=== PATIENT | male | born 1960 | race Caucasian/White ===

== ENCOUNTER 2017-10-11 18:54 | Observation (INO) | payer BC, SELFPAY ==
[2017-10-11 18:55] VITALS: BP 154/80; PULSE 97; RESP 18; TEMP 37.3; O2SAT 100; BMI 21.8
--- NOTE | 2017-10-11 19:18 | CT_ITS ---
STUDY: CT ABDOMEN AND PELVIS WITH CONTRAST REASON FOR EXAM: Male, 56 years old. Worsening stomach pain. RADIATION DOSAGE (If Supplied By Facility): CTDIvol = ( 8.88 ) mGy, DLP = ( 368.87 ) mGycm TECHNIQUE: Transaxial images were obtained from the dome of the diaphragm to the symphysis pubis without oral contrast. 100 ml of Isovue 300 contrast was administered. Sagittal and coronal images were reconstructed. Individualized dose optimization techniques were used for this CT. COMPARISON: January 17, 2010. FINDINGS: The visualized lung bases are unremarkable. The visualized portions of the heart are within normal limits. Normal liver. Normal gallbladder and extrahepatic biliary system. Normal spleen. Normal pancreas. Normal bilateral adrenal glands. Normal right kidney. Normal left kidney. Normal visualized stomach. Normal small intestine. Normal colon. The appendix is dilated measuring up to 11 mm in diameter. There is appendiceal wall thickening and free fluid within the pelvis. Normal abdominal aorta. Normal inferior vena cava. Normal retroperitoneum. Normal urinary bladder. Normal abdominal wall. Normal osseous structures. CT/Abdomen/Pelvis WITH Contrast IMPRESSION: Findings consistent with acute appendicitis. Electronically Signed: Leslie Denton MD at 21:41 EDT Tel , Service support ,
[2017-10-11] MEDS: Ondansetron 4 MG/2 ML Vial IV (19:29)
[2017-10-11] MEDS: 0.9% Normal Saline 1,000 ML 150 ML IV (19:29)
[2017-10-11] MEDS: Morphine 4 MG/ML Syringe IV (19:30)
[2017-10-11 19:41] LABS: Absolute Lymphocyte Count 0.93 X10^3/ul (0.83-4.51); Absolute Neutrophil Count 10.2 X10^3/uL (2.0-7.7); Basophil# 0.01 X10^3/uL; Basophil% 0.1 % (0-1); Eosinophil# 0.03 X10^3/uL; Eosinophils% 0.2 % (0-5); Hematocrit 31.5 % (40-54); Hemoglobin 10.9 g/dl (13.0-16.5); Lymphocyte # 0.93 X10^3/ul (4.0); Lymphocyte % 7.6 % (19-41); Mean Corp Hgb Conc 34.6 g/gl (32-36); Mean Corpuscular Hgb 30.8 pg (27.0-32.0); Mean Platelet Vol. 8.5 fl (6.2-12.0); Monocyte# 1.03 X10^3/uL; Monocyte% 8.4 % (0-10); Neutrophil # 10.17 X10^3/uL (2.7-7.7); Neutrophil % 83.5 % (47-70); Platelet Count 243 K/mm3 (150-450); RBC Distribution Width CV 11.3 % (11.6-14.6); RBC Distribution Width SD 35.6 fl (35.1-43.9); Red Blood Count 3.54 M/mm3 (4.6-6.2); White Blood Count 12.2 K/mm3 (4.4-11.0)
[2017-10-11 19:44] LABS: Anion Gap 8 (5-15); BUN 10 mg/dL (7-18); BUN/Creat Ratio 11.2 RATIO (10-20); Calcium,Total 8.7 mg/dL (8.5-10.1); Chloride 94 mmol/L (98-107); Creatinine, Serum 0.89 mg/dL (0.70-1.30); EST Glomerular Filtration Rate 93 mL/min (>60); Est Glom Filt Rate - Afr Amer 113 mL/min (>60); Glucose 164 mg/dL (74-106); Potassium 3.5 mmol/L (3.5-5.1); Sodium Level 129 mmol/L (136-145)
[2017-10-11 19:49] LABS: POSITIVE COUNT NO; POSITIVE DIFFERENTIAL NO; POSITIVE MORPHOLOGY NO
[2017-10-11 20:51] LABS: Bacteria 0 SEEN /hpf (None Seen); Mucous, Urine 0 SEEN /hpf (<or=2+); Red Blood Cells-Urine 0 SEEN /hpf (0-5); White Blood Cells 0 SEEN /hpf (0-5)
[2017-10-11 20:55] LABS: Color, Urine Yellow (Yellow); Glucose, Dipstick Normal (Normal); Ketone-Dipstick 5 mg/dl (Negative); Leukocyte Esterase-Dipstick Negative /ul (Negative); Nitrite-Dipstick Negative (Negative); Occult Blood-Urine Negative /ul (Negative); Protein-Dipstick Negative (Negative); Urine Bilirubin Dipstick Negative (Negative); Urine Clarity Clear (Clear); Urine Urobilinogen Normal (Normal); Urine pH 6.5 (5.0 - 8.0)
[2017-10-11 21:08] LABS: Squamous Epithelial Cells - UA 0-5 SEEN /hpf (0-5)
[2017-10-11 21:09] LABS: Transitional Epithelial - Ur 0-5 SEEN /hpf (0-5)
[2017-10-11 21:26] VITALS: BP 128/83; PULSE 87; RESP 12; O2SAT 98
--- NOTE | 2017-10-11 22:00 | ED.VISSUMM ---
- ER Visit Summary Date of Service: 10/11/17 Chief Complaint: Abdominal pain History of Present Illness: The patient is a 56 M with a history of ulcerative colitis although he has not been on medications for several years. Patient reports lower abdominal pain that started yesterday with sensation of bloating. He has had some mild nausea but no vomiting. He has noticed that he is not passing as much gas as normal. He had some chills but no measured fever. Patient denies any prior abdominal surgeries. Physical Examination: Blood pressure is 154/80, temperature 99.1, heart rate 97, respiratory rate 18, pulse ox 100% on room air. Patient sitting upright in bed no acute distress. He appears nontoxic. Head and neck examination is normal. Heart is regular rate and rhythm. Lung sounds are clear. Abdomen is soft with moderate tenderness in the left lower quadrant. There is no guarding or rebound. Hypoactive bowel sounds are noted. Test Results: CBC was a white count of 12.2 with 83% neutrophils. Hemoglobin 10.9. Chemistry studies reveal a sodium of 129 and a chloride of 94. Last prior available labs are from 2 years ago and his sodium was 135 at that time. His glucose is 164. CT scan abdomen and pelvis with contrast reveals evidence of acute appendicitis. Emergency Department Course and Treatment: Patient is given morphine, Zofran, and IV fluids. Upon return a CT scan Zosyn is ordered. I have spoken with Dr. Fitch who will be in to see the patient. Treatment Plan: [] Disposition: Admit Impression: Acute appendicitis This note was generated with [employer] dictation software. It may contain incorrect words, spelling, and punctuation that were not noted in review of the chart prior to signing ED Disposition - Plan for ED Patient: Chief Complaint: Abd Pain Referrals: Nick Duarte MD [Primary Care Provider] -
--- NOTE | 2017-10-11 22:03 | ED.DCSUM_ITS ---
- ER Visit Summary Date of Service: 10/11/17 Chief Complaint: Abdominal pain History of Present Illness: The patient is a 56 M with a history of ulcerative colitis although he has not been on medications for several years. Patient reports lower abdominal pain that started yesterday with sensation of bloating. He has had some mild nausea but no vomiting. He has noticed that he is not passing as much gas as normal. He had some chills but no measured fever. Patient denies any prior abdominal surgeries. Physical Examination: Blood pressure is 154/80, temperature 99.1, heart rate 97 , respiratory rate 18, pulse ox 100% on room air. Patient sitting upright in bed no acute distress. He appears nontoxic. Head and neck examination is normal. Heart is regular rate and rhythm. Lung sounds are clear. Abdomen is soft with moderate tenderness in the left lower quadrant. There is no guarding or rebound. Hypoactive bowel sounds are noted. Test Results: CBC was a white count of 12.2 with 83% neutrophils. Hemoglobin 10.9. Chemistry studies reveal a sodium of 129 and a chloride of 94. Last prior available labs are from 2 years ago and his sodium was 135 at that time. His glucose is 164. CT scan abdomen and pelvis with contrast reveals evidence of acute appendicitis. Emergency Department Course and Treatment: Patient is given morphine, Zofran, and IV fluids. Upon return a CT scan Zosyn is ordered. I have spoken with Dr. Fitch who will be in to see the patient. Treatment Plan: [] Disposition: Admit Impression: Acute appendicitis This note was generated with [facility] dictation software. It may contain incorrect words, spelling, and punctuation that were not noted in review of the chart prior to signing ED Disposition - Plan for ED Patient: Chief Complaint: Abd Pain Referrals: Nick uDarte MD [Primary Care Provider] -
--- NOTE | 2017-10-11 22:03 | EKG12_ITS ---
Test Reason : PRE-OP Blood Pressure : / mmHG Vent. Rate : 086 BPM Atrial Rate : 086 BPM P-R Int : 164 ms QRS Dur : 090 ms QT Int : 382 ms P-R-T Axes : 077 082 065 degrees QTc Int : 457 ms Normal sinus rhythm Normal ECG No previous ECGs available Confirmed by TG JARRETT ([id number]), art editor JEREMIAH LOPEZ ([id number]) on 10/25/2017 3:00:45 PM Referred By: DR TAVAREZ Confirmed By:TG JARRETT
[2017-10-11 22:17] VITALS: BP 131/84; PULSE 85; RESP 18; TEMP 37.3; O2SAT 97; BMI 21.8
--- NOTE | 2017-10-11 22:24 | ED.RN ---
NO OLD EKG'S IN MUSE
[2017-10-11 22:25] VITALS: BP 131/84; PULSE 84; RESP 18; O2SAT 98
--- NOTE | 2017-10-11 22:36 | HP.PCM_ITS ---
History of Present Illness Date of Admission: 10/11/17 The patient is a 56 year old M with a 24 hour history of abdominal pain now localizing to the right lower quadrant. He noted worsening pain this evening and presented to the ER. He was found to have a WBC count of [address] scan is read as appendicitis. The patient has a history ulcerative colitis. He has not been on medications for at least a few years. last endoscopy was 2014. Past Medical History Allergies No Known Allergies Allergy (Verified 10/11/17 18:56) Home Medications: Ambulatory Orders Medication Instructions Recorded Lisinopril [Lisinopril] 1 tab PO DAILY 10/11/17 Surgical History: no surgical history Smoking Status: Former smoker Alcohol: None Drugs: None Review of Systems Constitutional: Reports: Anorexia. Denies: Chills, Fever, Weight Change HEENT: Denies: Head Aches, Sinus Congestion, Sinus Drainage Cardiovascular: Denies: Chest Pain, Palpitations Respiratory: Denies: Cough, Shortness of breath at rest, Sputum production Gastrointestinal: Reports: Abdominal Pain. Denies: Nausea, Vomiting Genitourinary: Denies: Dysuria Musculoskeletal: Denies: Joint Pain, Joint Tenderness Skin: Denies: Rash, Wounds Neurological: Denies: Numbness, Tingling, Focal weakness Psychiatric: Denies: Anxiety, Depression, Homicidal Ideations, Suicidal Ideations Hematologic/ Lymphatic: Denies: Easy Bruising, Easy Bleeding VTE Information - Inpt Only VTE Present on Admission: No VTE Mechan Device Prophylaxis: SCD's - Physical Exam General: Alert, Oriented x3, Cooperative Lungs: Clear to auscultation, Normal air movement Cardiovascular: Regular rate, No murmurs Abdomen: Bowel Sounds Present, Soft, Tender - RLQ pain Vital Signs Temp Pulse Resp BP Pulse Ox 99.2 F H 85 18 131/84 H 97 10/11/17 22:17 10/11/17 22:17 10/11/17 22:17 10/11/17 22:17 10/11/17 22:17 Oxygen Delivery Method Room Air Weight: 67.1 kg Body Mass Index (BMI) 21.8 Laboratory Tests Past 24 Hrs 10/11/17 10/11/17 10/11/17 19:24 19:24 20:40 WBC 12.2 H RBC 3.54 L Hgb 10.9 L Hct 31.5 L MCV 89.0 MCH 30.8 MCHC 34.6 RDW 11.3 L RDW Differential 35.6 Plt Count 243 MPV 8.5 Immature Gran % (Auto) 0.200 Neut % (Auto) 83.5 H Lymph % (Auto) 7.6 L [place] % (Auto) 8.4 Eos % (Auto) 0.2 Baso % (Auto) 0.1 Absolute Neuts (auto) 10.2 H Absolute Lymphs (auto) 0.93 Total Counted Not Reportable Sodium 129 L Potassium 3.5 Chloride 94 L Carbon Dioxide 27.0 Anion Gap 8 BUN 10 Creatinine 0.89 Est GFR (MDRD) Af Amer 113 Est GFR (MDRD) Non-Af 93 BUN/Creatinine Ratio 11.2 Glucose 164 H Calcium 8.7 Urine Color Yellow Urine Clarity Clear Urine pH 6.5 Ur Specific [place] 1.010 Urine Protein Negative Urine Glucose (UA) Normal Urine Ketones 5 H Urine Occult Blood Negative Urine Nitrite Negative Urine Bilirubin Negative Urine Urobilinogen Normal Ur Leukocyte Esterase Negative Urine RBC 0 SEEN Urine WBC 0 SEEN Ur Squamous Epith Cells 0-5 SEEN Ur Transition Epith Cell 0-5 SEEN Urine Bacteria 0 SEEN Urine Mucus 0 SEEN Assessment/Plan Appendicitis - I plan to perform a laparoscopic appendectomy. The patient understands the risks, benefits and possible complications. He consents to surgery. He will be given ZOsyn and SCDs will be placed for VTE prevention
[2017-10-11] MEDS: Bupivacaine Mpf 0.5% 30 ML VIAL (22:58)
--- NOTE | 2017-10-11 23:30 | APP_PTH ---
PATIENT: DOMINICK DE LA CRUZ LOC: [facility] U#:[id number] AGE/SX: 56/M ROOM: MS315 RE10/11/[address]: Dr. Jez Naqvi MD : 1960 BED: 1 DIS: 10/12/2017 SPEC #: [id number] RECD: 10/12/17 07:40 STATUS: SUSAN REEricka #: [id number] MARLENA: 10/11/17 23:[address]: Jez Naqvi DEPT: SURGICAL PATHOLOGY RECD BY: Jerry Viveros ENTERED: 10/12/17 08:24 SP TYPE: APPENDIX OTHR DR: Dr. Martin Duarte MD Tissues: Appendix, NOS Procedures: Surgery Specimen Level III HEADER OPERATION: Laparoscopic appendectomy PRE-OP DIAGNOSIS: Acute appendicitis TISSUE SUBMITTED: Appendix MICROSCOPIC DIAGNOSIS Appendix: Acute appendicitis and periappendicitis. SJ:alex 10/13/17 MICROSCOPIC DESCRIPTION Slides are reviewed. GROSS DESCRIPTION Received is one container labeled with the patient's name and designated appendix. The specimen consists of an appendix measuring 8 cm in length and up to 1.2 cm in average diameter. The attached periappendiceal adipose tissue measures up to 1.5 cm in width. The serosa is focally covered with carlos, purulent exudate. No obvious perforation is identified. The lumen contains fecal material. No fecalith is identified. [address] sections are submitted in one cassette. / SJ:alex 10/12/17 TC:2 [facility]: [id number]
--- NOTE | 2017-10-11 23:54 | OP.PCM_ITS ---
Report of Operation Date of Procedure: 10/11/17 Pre-Operative Diagnosis: appendicitis Post-Operative Diagnosis: appendicitis Surgery/Procedure Performed:: laparoscopic appendectomy Description of Surgical Findings:: as above spin instructor: None Type of Anesthesia:: General Anesthesiologist: Venancio Spring Specimen's removed: appendix Estimated Blood Loss (mL): <25 Fluids Replaced: 400 Description of Procedure: The patient was brought to the operating suite. Sign in was performed verifying patient, site, procedure, position, and DVT prophylaxis with SCDs. Patient received 4.5 g Zosyn for presumed appendicitis. Following induction of general anesthetic. The patient?s abdomen was prepped and draped in the usual fashion. Timeout was performed verifying patient, site , position. Local anesthetic was injected below the umbilicus. Incision made and dissection carried down to the umbilical root fascia. 2 stay sutures were placed. Incision made in the fascia, the peritoneum entered under direct visualization. A 10 mm Felix trocar was inserted and secured with the stay sutures. Pneumoperitoneum to 15 mmHg was insufflated. 2 5mm ports were placed in the standard position. Visual inspection revealed . A window was made between the base the mesoappendix and the base of the appendix transected with the intestinal load Endo NICK stapler at the base of the cecum. The mesoappendix was transected with a harmonic scalpel. The appendix was placed in an Endobag and removed through the umbilical port site. An 0 PDS [id number] suture was placed around the umbilical port site defect. Pneumoperitoneum was reestablished. The appendiceal area was checked for hemostasis. 5 ports were removed under direct visualization with no signs of bleeding. Pneumoperitoneum was released. The Felix trocar was removed. The umbilical fascial suture was secured area did skin was closed with interrupted 4 -0 Monocryl subcuticular sutures. Steri-Strips and bandages were applied. The patient was brought to recovery room in stable condition.
--- NOTE | 2017-10-11 23:54 | DT_ITS ---
This patient was seen during an EMR downtime October 04, 2017 - October 11, 2017. This patient may have a combination of paper and electronic documentation or all paper documentation. All documentation is viewable within the e-chart portion of [facility] for each patient visit.
[2017-10-12] VITALS (11 sets, daily range): BP systolic 93–131; BP diastolic 50–84; PULSE 65–99; RESP 16–18; TEMP 36.3–37.3; O2SAT 95–99; BMI 23.1
[2017-10-12] MEDS: Lactated Ringers 1,000 ML 75 ML IV (00:58)
[2017-10-12] MEDS: Morphine 2 MG/ML Syringe IV ×2 (03:07→08:19)
[2017-10-12] MEDS: Piperacil/Tazobactam 3.375 GM/50 ML ML IV ×2 (05:03→13:44)
--- NOTE | 2017-10-12 06:36 | PCM.DC.APPY ---
Discharge Diet: Light diet - advance as tolerated - clear liquids until passing flatus Discharge Activity: May Not Drive - for 3-5 days or while taking narcotic pain meds. May shower in (days): 1 Suture Line Care: Avoid Pulling/Pushing, Avoid Pinching/Bending Additional Dressing/Incision Instructions:: Keep dressing clean and dry. Change or remove dressing in 2 days. Leave steri strips for 1 week. May protect with a gauze bandaid. Medications to take at Discharge Lisinopril [Zestril] 20 mg PO DAILY tablet 10/12/17 Oxycodone [Oxyir] 5 mg PO Q4H PRN PRN 7 Days #20 tab 10/12/17 Allergies/Adverse Reactions: Allergies No Known Allergies Allergy (Verified 10/11/17 18:56) The following prescriptions were given: Oxycodone [Oxyir] 5 mg PO Q4H PRN PRN 7 Days #20 tab PRN Reason: Severe Pain (6-10/10) Primary Care Physician: Nick Duarte MD [Primary Care Provider] - Please Follow Up With: Jez Naqvi MD - [phone] When: Call to make a follow up appointment in 1 week.
[2017-10-12] MEDS: Lisinopril 20 MG Tablet PO (10:51)
[2017-10-12] MEDS: oxyCODONE 5 MG Tablet PO (13:44)
--- NOTE | 2017-10-12 17:18 | PCM.DC.SUM ---
Discharge Date and Diagnosis Date of Admission: 10/11/17 Date of Discharge: 10/12/17 - Primary Discharge Diagnosis appendicitis Hospital Course and Treatment Operations: appendectomy Summary of Care Provided: The patient is a 56 year old M with a one-day history of pain localized in the right lower quadrant who presented with findings and imaging studies consistent with appendicitis. He was brought to the operating suite. He underwent laparoscopic appendectomy for early appendicitis without perforation. The patient had uneventful postoperative course will be discharged home on postoperative day 1. Discharge Diet: Light diet - advance as tolerated - clear liquids until passing flatus Discharge Activity: May Not Drive - for 3-5 days or while taking narcotic pain meds. May shower in (days): 1 Suture Line Care: Avoid Pulling/Pushing, Avoid Pinching/Bending Additional Dressing/Incision Instructions:: Keep dressing clean and dry. Change or remove dressing in 2 days. Leave steri strips for 1 week. May protect with a gauze bandaid. Home Medications: Medications to take at Discharge RX: Lisinopril [Zestril] 20 mg PO DAILY tablet 10/12/17 RX: Oxycodone [Oxyir] 5 mg PO Q4H PRN PRN 7 Days #20 tab 10/12/17 Following Prescrptions Were Given to Patient: RX: Oxycodone [Oxyir] 5 mg PO Q4H PRN PRN 7 Days #20 tab PRN Reason: Severe Pain (6-10/10) Primary Care Physician: Nick Duarte MD [Primary Care Provider] - Please Follow Up With: Jez Naqvi MD - [phone] When: Call to make a follow up appointment in 1 week. Medical Necessity - Tobacco Use Smoking Status: Former smoker Meaningful Use Info Meaningful Use Diagnoses (Choose all that apply): None applicable
== END 2017-10-12 17:25 | disposition home or self-care (01) ==
LOC: ED 19:48 → SDC 22:12 → MS3 10-12 01:00
PROVIDERS: Admitting Provider Surgery; Emergency Provider Emergency Medicine; Family Provider Family Medicine; PCP Family Medicine; Visit Provider Surgery
PROC: 0DTJ4ZZ Resection of Appendix, Percutaneous Endoscopic Approach (ICD-10-PCS; CPT 44970; principal; 2017-10-11 23:30)
DX: K35.80 Unspecified acute appendicitis (principal); K51.90 Ulcerative colitis, unspecified, without complications; Z79.899 Other long term (current) drug therapy; Z87.891 Personal history of nicotine dependence
CPT/HCPCS: 44970; 74177; 80048; 81001; 85025; 88304; 93005; 96361; 96365; 96366; 96375; 96376; 99218; 99282; J7030; J7120; Q9967; A4216; G0378; J2405

== ENCOUNTER → 2018-04-14 15:58 | Outpatient (CLI) | payer BC, SELFPAY ==
[2017-10-12 01:00] VITALS: BMI 23.1
--- NOTE | 2018-04-14 | COLBX_PTH ---
PATIENT: DOMINICK DE LA CRUZ LOC: [facility] U#:[id number] AGE/SX: 64/M ROOM: RE04/14/[address]: Dr. Josh Davis MD : 1960 BED: DIS: SPEC #: [id number] RECD: 04/14/18 15:50 STATUS: SUSAN GASTELUMEricka #: [id number] MARLENA: 04/14/18 00:[address]: Josh Davis DEPT: SURGICAL PATHOLOGY RECD BY: Jerry Viveros ENTERED: 04/15/18 10:21 SP TYPE: COLON BX VARGHESE DR: Dr. Martin Duarte MD [facility] Tissues: A - Right colon B - Left colon Procedures: Surgery Specimen Level IV HEADER OPERATION: Colonoscopy with biopsies PRE-OP DIAGNOSIS: Ulcerative colitis TISSUE SUBMITTED: A - Right colon pseudopolyps biopsies, rule out colitis/dysplasia, B - Left colon biopsies, rule out colitis/dysplasia MICROSCOPIC DIAGNOSIS A. Right colon, pseudopolyps, biopsy: Focal chronic active colitis. See microscopic description and comment. B. Left colon, biopsy: Focal chronic active colitis. See microscopic description and comment. SJ:alex 04/18/18 COMMENT The findings are consistent with chronic inflammatory bowel disease (ulcerative colitis) with mild activity. Correlation with clinical, endoscopic findings and appropriate follow up are necessary. MICROSCOPIC DESCRIPTION Slides are reviewed. A & B. Specimens show fragments of colonic mucosa with a few fragments showing acute and chronic inflammatory cells infiltrating the lamina propria, cryptitis and minimal granular distortion. Specimen A also shows crypt abscesses. Granulomas are noted. No evidence of dysplasia. GROSS DESCRIPTION A - Received in fixative is one container labeled with the patient's name and designated right colon biopsy pseudopolyp. The specimen consists of multiple irregular fragments of light joy soft tissue that in aggregate measure 2 x 0.6 x 0.1 cm. The specimen is totally submitted in one cassette. B - Received in fixative is one container labeled with the patient's name and designated left colon biopsy. The specimen consists of multiple irregular fragments of light joy soft tissue that in aggregate measure 1.5 x 0.5 x 0.1 cm. The specimen is totally submitted in one cassette. / RENEE:alex 04/15/18 TC:2 CPT: 88878 x2
--- OUTSIDE RECORDS SUMMARY | 2018-05-31 13:40 | XMS RPT_ITS ---
:1960 Author Organization OHIP Care Team Providers Name Role Phone AIME HINKLE (PA) Attending Unavailable JEZ TAVAREZ Referring Unavailable Josh Davis Attending Unavailable Josh Davis Referring Unavailable Martin Duarte Primary Care Unavailable Martin Duarte Primary Care Unavailable Jez Tavarez Attending Unavailable Jze Tavarez Admitting Unavailable Hernesto Jarrett Attending Unavailable Jez Tavarez Referring Unavailable PROBLEMS PROBLEMS DATE TYPE CONDITION / CODE ATTENDING STATUS SOURCE 10/29/2017 Unknown K37 - Unspecified Bryson Tavarez appendicitis / Jez [facility] K37(ICD-10) Hospital Repository 11/11/2017 Unknown Z01.810 - Encounter Hernesto Jarrett for preprocedural [facility] examination / Repository Z01.810(ICD-10) PROCEDURES PROCEDURES No Procedure Records FoundRESULTS RESULTS COLON BIOPSY (CHOOSE Observed: 04/14/2018 Status: F Source: [place]) 12:00 AM COUNTS INCLUDE 234 BEDS AT THE [facility] HOSPITAL REPOSITORY Patient: DOMINICK DE LA CRUZ : 1960 (57/M) Acct Num: [id number] Phys: Josh Davis Unit Num: [id number] Loc: LABSPEC Specimen: [id number] Received: 04/14/18 8233 Spec Type: COLON BX TISSUES 1 TISSUES: A. Right colon B. Left colon COMMENT The findings are consistent with chronic inflammatory bowel disease (ulcerative colitis) with mild activity. Correlation with clinical, endoscopic findings and appropriate follow up are necessary. GROSS DESCRIPTION A - Received in fixative is one container labeled with the patient's name and designated right colon biopsy pseudopolyp. The specimen consists of multiple irregular fragments of light joy soft tissue that in aggregate measure 2 x 0.6 x 0.1 cm. The specimen is totally submitted in one cassette. B - Received in fixative is one container labeled with the patient's name and designated left colon biopsy. The specimen consists of multiple irregular fragments of light joy soft tissue that in aggregate measure 1.5 x 0.5 x 0.1 cm. The specimen is totally submitted in one cassette. / RENEE:alex 04/15/18 TC:2 CPT: 12183 x2 HEADER OPERATION: Colonoscopy with biopsies PRE-OP DIAGNOSIS: Ulcerative colitis TISSUE SUBMITTED: A - Right colon pseudopolyps biopsies, rule out colitis/ dysplasia, B - Left colon biopsies, rule out colitis/dysplasia MICROSCOPIC DESCRIPTION Slides are reviewed. A AND B. Specimens show fragments of colonic mucosa with a few fragments showing acute and chronic inflammatory cells infiltrating the lamina propria, cryptitis and minimal granular distortion. Specimen A also shows crypt abscesses. Granulomas are noted. No evidence of dysplasia. MICROSCOPIC DIAGNOSIS A. Right colon, pseudopolyps, biopsy: Focal chronic active colitis. See microscopic description and comment. B. Left colon, biopsy: Focal chronic active colitis. See microscopic description and comment. RENEE:alex 04/18/18 Signed Rashad Lopez 04/18/18 <signature on file> Performed By: #### PCOLBX #### [facility] [address] [place], [address] 12 LEAD ELECTROCARDIOGRAM Observed: 10/25/2017 Status: F Source: [place] 3:00 PM [facility] REPOSITORY [facility] Cardiovascular Services [address] [place] [address] 12 Lead EKG 10/11/17 2230 MR#: [id number] Acct: [id number] Name: DOMINICK DE LA CRUZ Rep #: [id number] : 1960 56 From: Hernesto Jarrett MD Attending Dr: Jez Tavarez MD Status: DIS FAMILIA Ordering Dr: Sandy Freeman MD Date: 10/11/17 [place] [facility] [place]: M C Admitted: 10/11/17 Test Reason : PRE-OP Blood Pressure : / mmHG Vent. Rate : 086 BPM Atrial Rate : 086 BPM P-R Int : 164 ms QRS Dur : 090 ms QT Int : 382 ms P-R-T Axes : 077 082 065 degrees QTc Int : 457 ms Normal sinus rhythm Normal ECG No previous ECGs available Confirmed by HERNESTO JARRETT ([id number]), deputy editor in chief JEREMIAH LOPEZ ([id number]) on 10/25/2017 3:00:45 PM Referred By: DR TAVAREZ Confirmed By:HERNESTO JARRETT 10/25/17 1500 Date Hernesto Jarrett MD CC: Martin Duarte MD; Sandy Freeman MD; Jez Tavarez MD Signed PROGRESS Observed: 10/23/2017 Status: COMPLETED Source: [place] 7:[address] [facility] [place] REPOSITORY O ID: [id number] Author: Jez Tavarez Service: (none) Author Type: Physician Type: Progress Notes Filed: 10/23/2017 7:32 PM Note Text: OPERATIVE NOTATION FOR [facility] SURGICAL PROCEDURE. October 11, 2017 Dominick De La Cruz 1960 [id number] male PROCEDURE: laparoscopic appendectomy - [id number] SURGEON: Igor Tavarez M.D. FACS MACHINIST HELPER MARINE: None DEPT: WQ PROVIDER: [id number] Tavarez MD POS: [id number] DIAGNOSIS: (K35.3) Acute appendicitis with localized peritonitis (primary encounter diagnosis) ASA CLASS: 2E - mild emergency FINDINGS: COMPLICATIONS: None PMHx - PAST MEDICAL HISTORY Diagnosis Date - HTN (hypertension) COMORBIDITIES - HTN Post Op Occurrences - None Wound Classification - Clean Contaminated Operative note dictated in the [facility] dictation system. Jez Tavarez MD DOWNTIME REPORT Observed: 10/20/2017 Status: F Source: [place] 1:33 PM [facility] REPOSITORY [facility] Medical Records Department [address] [place] [address] Downtime Report MR#: [id number] Acct: [id number] Name: DOMINICK DE LA CRUZ Rep #: [id number] : 1960 56 From: Pepe Madsen MD PCP: Martin Duarte MD Status: DIS FAMILIA This patient was seen during an EMR downtime October 04, 2017 - October 11, 2017. This patient may have a combination of paper and electronic documentation or all paper documentation. All documentation is viewable within the e-chart portion of [facility] for each patient visit. PROGRESS Observed: 10/20/2017 Status: COMPLETED Source: [place] 12:07 PM [facility] REPOSITORY HNO ID: [id number] Author: Aime Hinkle (Pa) Service: (none) Author Type: Physician Bending Frame Operator Type: Progress Notes Filed: 10/20/2017 12:09 PM Note Text: FOLLOW UP VISIT - APPENDICITIS NAME: Dominick De La Cruz [facility] NO.: [id number] DATE OF SERVICE: 10/19/2017 : 1960 REFERRING PHYSICIAN: Martin Duarte MD Dominick is a patient I am following for acute appendicitis. Dr. Tavarez performed a laparoscopic appendectomy on 10/11/17. The patient's appendix demonstrated acute appendicitis and periappendicitis. The patient did well post operatively. The patient currently notes no problems. His appetite has been good. he denies fever, chills or abdominal pain. He does note some mild incisional discomfort. VITALS: Blood pressure 122/58, pulse 60, weight 64 kg (141 lb). On examination, the abdomen is benign. The incisions are healing well without signs of infection or inflammation. There is no right lower quadrant tenderness. Assessment IMPRESSION: status post laparoscopic appendectomy for acute appendicitis PLAN: If the patient notes any problems or signs of wound infections, the patient should contact me immediately. he may return to his regular activities as tolerated. Diagnoses: (K35.89) Other acute appendicitis (primary encounter diagnosis) Return to Clinic: The patient is instructed to follow- up with me as needed. Aime Hinkle PA-C CNOV Observed: 10/19/2017 Status: COMPLETED Source: [place] 1:[address] [facility] REPOSITORY Office Visit (GENSWS) DOMINICK DE LA CRUZ ([id number]) 1960 M Date Time Provider Department 10/19/17 1:10 PM AIME HINKLE (PA) During your visit today, we recorded the following information about you: Pulse Blood pressure Weight 60/minute 122/58 64 kg Aime Hinkle PA-C 10/19/2017 1:37 PM Signed The following instructions are important for you related to your office visit today with the [facility] General Surgeons. INSTRUCTIONS FOLLOWING YOUR RECENT SURGERY You should be returning to your regular diet, If you have having persistent issues with tolerating your diet, please contact our office It is not unusual to have incisional pain for the first 1- 2 weeks following surgery. If this persists beyond 2 weeks, contact the office You may remove the steri-strips in 5 days. You may return to your regular activities. You may drive if you are no longer taking narcotic pain medication. You should perform no lifting greater than 25lbs for the next 2 weeks. It is not unusual to have loose stools following surgery. This is usually self limited and related to the antibiotics that were given during your surgical procedure. Fiber supplementation and yogurt with active cultures may help you return to regular bowel activity. If you note loose stools persisting for over 2 weeks, or significant cramping or loose bloody stools, contact the office immediately. Contact the office immediately if any of your incisions become increasingly tender, red or have drainage. Again, if you have any difficulties or concerns, contact our office immediately. If you note any additional difficulties, questions, or concerns, you should contact our office immediately @ [phone] and ask to be transferred to the General Surgery department. Aime Hinkle PA-C 10/20/2017 12:09 PM Signed FOLLOW UP VISIT - APPENDICITIS NAME: Dominick Rich Adalid [facility] NO.: [id number] DATE OF SERVICE: 10/19/2017 : 1960 REFERRING PHYSICIAN: Martin Duarte MD Dominick is a patient I am following for acute appendicitis. Dr. Tavarez performed a laparoscopic appendectomy on 10/11/17. The patient's appendix demonstrated acute appendicitis and periappendicitis. The patient did well post operatively. The patient currently notes no problems. His appetite has been good. he denies fever, chills or abdominal pain. He does note some mild incisional discomfort. VITALS: Blood pressure 122/58, pulse 60, weight 64 kg (141 lb). On examination, the abdomen is benign. The incisions are healing well without signs of infection or inflammation. There is no right lower quadrant tenderness. Assessment IMPRESSION: status post laparoscopic appendectomy for acute appendicitis PLAN: If the patient notes any problems or signs of wound infections, the patient should contact me immediately. he may return to his regular activities as tolerated. Diagnoses: (K35.89) Other acute appendicitis (primary encounter diagnosis) Return to Clinic: The patient is instructed to follow- up with me as needed. Aime Hinkle PA-C Referring Provider: JEZ TAVAREZ [[id number]] Allergies As of Date: 10/19/2017 (No Known Allergies) Date Reviewed: 10/19/2017 Reviewed by: Grace Rubio LPN - Fully Assessed Reason for Visit: Post Op [174] Primary Visit Diagnosis:Other acute appendicitis [K35.89] Prescriptions as of 10/19/2017 Sig: LISINOPRIL 20 MG TABLET DAILY Problem List As Of Date: 10/19/2017 (None) Other instructions from your clinician: The following instructions are important for you related to your office visit today with the [facility] Surgeons. INSTRUCTIONS FOLLOWING YOUR RECENT SURGERY You should be returning to your regular diet, If you have having persistent issues with tolerating your diet, please contact our office It is not unusual to have incisional pain for the first 1-2 weeks following surgery. If this persists beyond 2 weeks, contact the office You may remove the steri-strips in 5 days. You may return to your regular activities. You may drive if you are no longer taking narcotic pain medication. You should perform no lifting greater than 25lbs for the next 2 weeks. It is not unusual to have loose stools following surgery. This is usually self limited and related to the antibiotics that were given during your surgical procedure. Fiber supplementation and yogurt with active cultures may help you return to regular bowel activity. If you note loose stools persisting for over 2 weeks, or significant cramping or loose bloody stools, contact the office immediately. Contact the office immediately if any of your incisions become increasingly tender, red or have drainage. Again, if you have any difficulties or concerns, contact our office immediately. If you note any additional difficulties, questions, or concerns, you should contact our office immediately @ [phone] and ask to be transferred to the General Surgery department. Medications Discontinued During This Encounter Etodolac 500 mg tablet 20 t* 0 09/11/2012 10/19/2017 Route: ORAL Sig: Take 1 tablet by mouth twice daily. Disc: Reason for discontinue is not on file. MESALAMINE (LIALDA ORAL) 10/19/2017 Class: Historical Med Route: ORAL Sig: Take by mouth. Disc: Reason for discontinue is not on file. Encounter Status:Closed by AIME HINKLE PA-C on 10/20/17 DISCHARGE SUMMARY Observed: 10/12/2017 Status: F Source: [place] 5:20 PM [facility] REPOSITORY [facility] Medical Records Department [address] [place] [address] Discharge Summary 10/12/17 1718 MR#: [id number] Acct: [id number] Name: DOMINICK DE LA CRUZ Rep #: [id number] : 1960 56 From: Jez Tavarez MD PCP: Martin Duarte MD Status: ADM FAMILIA Y Location: [place] [address] Discharge Date and Diagnosis Date of Admission: 10/11/17 Date of Discharge: 10/12/17 - Primary Discharge Diagnosis appendicitis Hospital Course and Treatment Operations: appendectomy Summary of Care Provided: The patient is a 56 year old M with a one-day history of pain localized in the right lower quadrant who presented with findings and imaging studies consistent with appendicitis. He was brought to the operating suite. He underwent laparoscopic appendectomy for early appendicitis without perforation. The patient had uneventful postoperative course will be discharged home on postoperative day 1. Discharge Diet: Light diet - advance as tolerated - clear liquids until passing flatus Discharge Activity: May Not Drive - for 3-5 days or while taking narcotic pain meds. May shower in (days): 1 Suture Line Care: Avoid Pulling/Pushing, Avoid Pinching/Bending Additional Dressing/Incision Instructions:: Keep dressing clean and dry. Change or remove dressing in 2 days. Leave steri strips for 1 week. May protect with a gauze bandaid. Home Medications: Medications to take at Discharge RX: Lisinopril [Zestril] 20 mg PO DAILY tablet 10/12/17 RX: Oxycodone [Oxyir] 5 mg PO Q4H PRN PRN 7 Days #20 tab 10/12/17 Following Prescrptions Were Given to Patient: RX: Oxycodone [Oxyir] 5 mg PO Q4H PRN PRN 7 Days #20 tab PRN Reason: Severe Pain (6-02/09) Primary Care Physician: Nick Duarte MD [Primary Care Provider] - Please Follow Up With: Jez Tavarez MD - [phone] When: Call to make a follow up appointment in 1 week. Medical Necessity - Tobacco Use Smoking Status: Former smoker Meaningful Use Info Meaningful Use Diagnoses (Choose all that apply): None applicable 10/12/17 1720 <Electronically signed by Jez Tavarez MD> Date Jez Tavarez MD Cosigner Signature (if applicable): Date CC: Martin Duarte MD; Jez Tavarez MD Signed OPERATIVE REPORT Observed: 10/12/2017 Status: F Source: [place] 5:18 PM [facility] REPOSITORY [facility] Medical Records Department [address] [place] [address] Operative Report 10/11/17 2353 MR#: [id number] Acct: [id number] Name: DOMINICK DE LA CRUZ Rep #: [id number] : 1960 56 From: Jez Tavarez MD PCP: Martin Duarte MD Status: ADM FAMILIA Y Location: [address] Report of Operation Date of Procedure: 10/11/17 Pre-Operative Diagnosis: appendicitis Post-Operative Diagnosis: appendicitis Surgery/Procedure Performed:: laparoscopic appendectomy Description of Surgical Findings:: as above event technician: None Type of Anesthesia:: General Anesthesiologist: Venancio Spring Specimen's removed: appendix Estimated Blood Loss (mL): <25 Fluids Replaced: 400 Description of Procedure: The patient was brought to the operating suite. Sign in was performed verifying patient, site, procedure, position, and DVT prophylaxis with SCDs. Patient received 4.5 g Zosyn for presumed appendicitis. Following induction of general anesthetic. The patient s abdomen was prepped and draped in the usual fashion. Timeout was performed verifying patient, site, position. Local anesthetic was injected below the umbilicus. Incision made and dissection carried down to the umbilical root fascia. 2 stay sutures were placed. Incision made in the fascia, the peritoneum entered under direct visualization. A 10 mm Felix trocar was inserted and secured with the stay sutures. Pneumoperitoneum to 15 mmHg was insufflated. 2 5mm ports were placed in the standard position. Visual inspection revealed . A window was made between the base the mesoappendix and the base of the appendix transected with the intestinal load Endo NICK stapler at the base of the cecum. The mesoappendix was transected with a harmonic scalpel. The appendix was placed in an Endobag and removed through the umbilical port site. An 0 PDS dgcgxb-de-idona suture was placed around the umbilical port site defect. Pneumoperitoneum was reestablished. The appendiceal area was checked for hemostasis. 5 ports were removed under direct visualization with no signs of bleeding. Pneumoperitoneum was released. The Felix trocar was removed. The umbilical fascial suture was secured area did skin was closed with interrupted 4-0 Monocryl subcuticular sutures. Steri-Strips and bandages were applied. The patient was brought to recovery room in stable condition. 10/12/178 <Electronically signed by Jez Tavarez MD> Date Jez Tavarez MD CC: Martin Duarte MD; Jez Tavarez MD Signed DISCHARGE INSTRUCTION Observed: 10/12/2017 Status: F Source: [place] 6:37 AM [facility] REPOSITORY [facility] Medical Records Department [address] [place] [address] Instructions for Home/Discharge Instructions 10/12/17 0636 MR#: [id number] Acct: [id number] Name: DOMINICK DE LA CRUZ Rep #: [id number] : 1960 56 From: Jez Tavarez MD PCP: Martin Duarte MD Status: ADM FAMILIA Discharge Diet: Light diet - advance as tolerated - clear liquids until passing flatus Discharge Activity: May Not Drive - for 3-5 days or while taking narcotic pain meds. May shower in (days): 1 Suture Line Care: Avoid Pulling/Pushing, Avoid Pinching/Bending Additional Dressing/Incision Instructions:: Keep dressing clean and dry. Change or remove dressing in 2 days. Leave steri strips for 1 week. May protect with a gauze bandaid. Medications to take at Discharge Lisinopril [Zestril] 20 mg PO DAILY tablet 10/12/17 Oxycodone [Oxyir] 5 mg PO Q4H PRN PRN 7 Days #20 tab 10/12/17 Allergies/Adverse Reactions: Allergies No Known Allergies Allergy (Verified 10/11/17 18:56) The following prescriptions were given: Oxycodone [Oxyir] 5 mg PO Q4H PRN PRN 7 Days #20 tab PRN Reason: Severe Pain (6-10/10) Primary Care Physician: Nick Duarte MD [Primary Care Provider] - Please Follow Up With: Jez Tavarez MD - [phone] When: Call to make a follow up appointment in 1 week. 10/12/17 0637 <Electronically signed by Jez Tavarez MD> Date Jez Tavarez MD CC: Martin Duarte MD EMERGENCY DEPARTMENT Observed: 10/11/2017 Status: F Source: [place] SUMMARY 11:31 PM [facility] REPOSITORY [facility] Medical Records Department [address] [place] [address] Emergency Department Summary 10/11/17 2200 MR#: [id number] Acct: [id number] Name: DOMINICK DE LA CRUZ Rep #: [id number] : 1960 56 From: Sandy Freeman MD PCP: Martin Duarte MD Status: REG SD[facility] - ER Visit Summary Date of Service: 10/11/17 Chief Complaint: Abdominal pain History of Present Illness: The patient is a 56 M with a history of ulcerative colitis although he has not been on medications for several years. Patient reports lower abdominal pain that started yesterday with sensation of bloating. He has had some mild nausea but no vomiting. He has noticed that he is not passing as much gas as normal. He had some chills but no measured fever. Patient denies any prior abdominal surgeries. Physical Examination: Blood pressure is 154/80, temperature 99.1, heart rate 97, respiratory rate 18, pulse ox 100% on room air. Patient sitting upright in bed no acute distress. He appears nontoxic. Head and neck examination is normal. Heart is regular rate and rhythm. Lung sounds are clear. Abdomen is soft with moderate tenderness in the left lower quadrant. There is no guarding or rebound. Hypoactive bowel sounds are noted. Test Results: CBC was a white count of 12.2 with 83% neutrophils. Hemoglobin 10.9. Chemistry studies reveal a sodium of 129 and a chloride of 94. Last prior available labs are from 2 years ago and his sodium was 135 at that time. His glucose is 164. CT scan abdomen and pelvis with contrast reveals evidence of acute appendicitis. Emergency Department Course and Treatment: Patient is given morphine, Zofran, and IV fluids. Upon return a CT scan Zosyn is ordered. I have spoken with Dr. Fitch who will be in to see the patient. Treatment Plan: [] Disposition: Admit Impression: Acute appendicitis This note was generated with Introhive dictation software. It may contain incorrect words, spelling, and punctuation that were not noted in review of the chart prior to signing ED Disposition - Plan for ED Patient: Chief Complaint: Abd Pain Referrals: Nick Duarte MD [Primary Care Provider] - What to do if you have Problems For any increased pain, shortness of breath, bleeding, nausea or vomiting, chest pain, or any unexpected problems, contact your Primary Care Provider. Call [facility] ([phone]) or report to the closest Emergency Room. Call 911 if necessary. 10/11/17 2331 <Electronically signed by Sandy Freeman MD> Date Sandy Freeman MD Cosigner Signature (If Indicated): Date CC: Martin Duarte MD APPENDIX Observed: 10/11/2017 Status: F Source: [place] 11:30 PM [facility] REPOSITORY Patient: DOMINICK DE LA CRUZ : 1960 (56/M) Acct Num: [id number] Phys: Jez Tavarez MD Unit Num: [id number] Loc: MS3 [id number] Specimen: [id number] Received: 10/12/17 0740 Spec Type: APPENDIX TISSUES TISSUES: Appendix, NOS GROSS DESCRIPTION Received is one container labeled with the patient's name and designated appendix. The specimen consists of an appendix measuring 8 cm in length and up to 1.2 cm in average diameter. The attached periappendiceal adipose tissue measures up to 1.5 cm in width. The serosa is focally covered with carlos, purulent exudate. No obvious perforation is identified. The lumen contains fecal material. No fecalith is identified. [place] Picker sections are submitted in one cassette. / SJ:alex 10/12/17 TC:2 CPT: 70721 HEADER OPERATION: Laparoscopic appendectomy PRE-OP DIAGNOSIS: Acute appendicitis TISSUE SUBMITTED: Appendix MICROSCOPIC DESCRIPTION Slides are reviewed. MICROSCOPIC DIAGNOSIS Appendix: Acute appendicitis and periappendicitis. SJ:alex 10/13/17 Signed Rashad Lopez 10/13/17 <signature on file> Performed By: #### MASON #### [facility] [address] [place], [address] HISTORY AND PHYSICAL Observed: 10/11/2017 Status: F Source: [place] EXAM 10:36 PM [facility] REPOSITORY [facility] Medical Records Department [address] [place] [address] History and Physical 10/11/17 2226 MR#: [id number] Acct: [id number] Name: DOMINICK DE LA CRUZ Rep #: [id number] : 1960 56 From: Jez Tavarez MD PCP: Martin Duarte MD Status: REG [facility] Y Location: [facility] History of Present Illness Date of Admission: 10/11/17 The patient is a 56 year old M with a 24 hour history of abdominal pain now localizing to the right lower quadrant. He noted worsening pain this evening and presented to the ER. He was found to have a WBC count of [address] scan is read as appendicitis. The patient has a history ulcerative colitis. He has not been on medications for at least a few years. last endoscopy was 2014. Past Medical History Allergies No Known Allergies Allergy (Verified 10/11/17 18:56) Home Medications: Ambulatory Orders Medication Instructions Recorded Lisinopril [Lisinopril] 1 tab PO DAILY 10/11/17 Surgical History: no surgical history Smoking Status: Former smoker Alcohol: None Drugs: None Review of Systems Constitutional: Reports: Anorexia. Denies: Chills, Fever, Weight Change HEENT: Denies: Head Aches, Sinus Congestion, Sinus Drainage Cardiovascular: Denies: Chest Pain, Palpitations Respiratory: Denies: Cough, Shortness of breath at rest, Sputum production Gastrointestinal: Reports: Abdominal Pain. Denies: Nausea, Vomiting Genitourinary: Denies: Dysuria Musculoskeletal: Denies: Joint Pain, Joint Tenderness Skin: Denies: Rash, Wounds Neurological: Denies: Numbness, Tingling, Focal weakness Psychiatric: Denies: Anxiety, Depression, Homicidal Ideations, Suicidal Ideations Hematologic/ Lymphatic: Denies: Easy Bruising, Easy Bleeding VTE Information - Inpt Only VTE Present on Admission: No VTE Mechan Device Prophylaxis: SCD's - Physical Exam General: Alert, Oriented x3, Cooperative Lungs: Clear to auscultation, Normal air movement Cardiovascular: Regular rate, No murmurs Abdomen: Bowel Sounds Present, Soft, Tender - RLQ pain Vital Signs Temp Pulse Resp BP Pulse Ox 99.2 F H 85 18 131/84 H 97 10/11/17 22:17 10/11/17 22:17 10/11/17 22:17 10/11/17 22:17 10/11/17 22:17 Oxygen Delivery Method Room Air Weight: 67.1 kg Body Mass Index (BMI) 21.8 Laboratory Tests Past 24 Hrs WBC 12.2 H Assessment/Plan Appendicitis - I plan to perform a laparoscopic appendectomy. The patient understands the risks, benefits and possible complications. He consents to surgery. He will be given ZOsyn and SCDs will be placed for VTE prevention 10/11/176 <Electronically signed by Jez Tavarez MD> Date Jez Tavarez MD Cosigner Signature: Date (if applicable) CC: Martin Duarte MD; Jez Tavarez MD Signed URINALYSIS, COMPLETE Collected: 10/11/2017 Status: F Source: [place] 8:40 PM [facility] REPOSITORY Order Comment: Order Date: 10/11/17 How was Urine Obtained? CLEAN CATCH TYPE CODE TESTS RESULT OUT OF REFERENCE UNITS RANGE LAB L400.3000 Yellow COLOR Normal Yellow LAB L400.3050 Clear CLARITY Normal Clear LAB L400.3200 Normal mg/dl GLUCOSE, UR Normal Normal LAB L400.3300 Negative mg/dL BILIRUBIN Normal URINE Negative LAB L400.3400 Negative mg/dl KETONE UR High 5 LAB L400.3465 1.002-1.030 SP.GR. Normal DIPSTX 1.010 LAB L400.3550 5.0 - 8.0 pH UR Normal 6.5 LAB L400.3600 Negative mg/dl PROT DIPSTX Normal Negative LAB L400.3700 Normal mg/dl UROBILI Normal Normal LAB L400.3750 Negative NITRITE UR Normal Negative LAB L400.3780 Negative /ul OCCULT Normal BLOOD-UR Negative LAB L400.3800 Negative /ul LEUK Normal ESTERASE Negative LAB L400.4050 0-5 /hpf WBC Normal 0 SEEN LAB L400.4100 0-5 /hpf RBC-UA Normal 0 SEEN LAB L400.4150 0-5 /hpf SQUAM EPI Normal 0-5 SEEN LAB L400.4300 None Seen /hpf BACTERIA Normal 0 SEEN LAB L400.4350 <or=2+ /hpf MUCUS, Normal URINE 0 SEEN LAB L400.4200 0-5 /hpf Normal TRANSITIONAL EP 0-5 SEEN Performed By: #### L400.0001 #### [facility] [address] [place], [address] BASIC METABOLIC Collected: 10/11/2017 Status: F Source: [place] PROFILE (BMP) 7:24 PM [facility] REPOSITORY TYPE CODE TESTS RESULT OUT OF RANGE REFERENCE UNITS LAB L501.0100 74-106 mg/dL High GLU 164 Result Comment: Fasting Glucose result greater than or equal to 126 mg/dL suggests DIABETES MELLITUS per A.D.A. criteria. Please note revised GLUCOSE reference range effective 2017. LAB L501.1000 7-18 mg/dL Normal BUN 10 LAB L501.1100 0.70-1.30 mg/dL Normal CREAT,SERUM 0.89 Result Comment: The validity of the calculated GFR AND GFRAA in patients over 70 years has not been determined. Clinical correlation is essential. LAB L501.1110 >60 mL/min Normal EST GFR 93 Result Comment: Non- GFR Calc LAB L501.1115 >60 mL/min Normal EST GFR - AA 113 Result Comment: GFR Calc LAB L501.1300 10-20 RATIO Normal BUN/CRE 11.2 LAB L501.2200 8.5-10.1 mg/dL CA Normal 8.7 LAB L501.5300 136-145 mmol/L Low NA 129 LAB L501.5600 3.5-5.1 mmol/L K Normal 3.5 LAB L501.5900 98-107 mmol/L Low CL 94 LAB L501.6100 21.0-32.0 mmol/L Normal CO2 27.0 LAB L501.6200 5-15 Normal GAP 8 Performed By: #### L500.2500 #### [facility] [address] [place], [address] CBC W/DIFF, AUTOMATED Collected: 10/11/2017 Status: F Source: [place] 7:24 PM [facility] REPOSITORY TYPE CODE TESTS RESULT OUT OF RANGE REFERENCE UNITS LAB L100.1000 4.4-11.0 K/mm3 High WBC 12.2 LAB L100.1200 4.6-6.2 M/mm3 Low RBC 3.54 LAB L100.1300 13.0-16.5 g/dl Low HGB 10.9 LAB L100.1400 40-54 % Low HCT 31.5 LAB L100.1500 80-94 fL Normal MCV 89.0 LAB L100.1600 27.0-32.0 pg Normal MCH 30.8 LAB L100.1700 32-36 g/gl Normal MCHC 34.6 LAB L100.1810 11.6-14.6 % Low RDW CV 11.3 LAB L100.1820 35.1-43.9 fl Normal RDW SD 35.6 LAB L100.1900 150-450 K/mm3 Normal PLT 243 LAB L100.2000 6.2-12.0 fl Normal MPV 8.5 LAB L100.2100 47-70 % High NEUT% 83.5 LAB L100.2200 19-41 % Low LY% 7.6 LAB L100.2300 0-10 % Normal MONO% 8.4 LAB L100.2400 0-5 % Normal EO% 0.2 LAB L100.2500 0-1 % Normal BASO% 0.1 LAB L100.2550 0.0-0.9 % Normal IM GRAN % 0.200 Result Comment: IG% - Immature Granulocytes (promyelocytes, myelocytes and metamyelocytes) > 1% indicates that a LEFT SHIFT is Present. LAB L100.2620 2.0-7.7 X10 3/uL High Absolute Neut 10.2 LAB L100.2720 0.83-4.51 X10 3/ul Normal Absolute Lymph 0.93 Performed By: #### L100.0100 #### [facility] [address] [place], [address] ABDOMEN/PELVIS WITH Observed: 10/11/2017 Status: F Source: [place] CONTRAST 7:19 PM [facility] REPOSITORY [facility] Imaging Services [address] [place] [address] Abdomen/Pelvis WITH Contrast MR#: [id number] Acct: [id number] Name: DOMINICK DE LA CRUZ Rep #: [id number] : 1960 M 56 From: Leslie Denton MD PCP: Martin Duarte MD Status: REG ER Study: Abdomen/Pelvis WITH Contrast Date of Exam: 10/11/17 Exam# [id number] Ordering Dr: Sandy Freeman MD STUDY: CT ABDOMEN AND PELVIS WITH CONTRAST REASON FOR EXAM: Male, 56 years old. Worsening stomach pain. RADIATION DOSAGE (If Supplied By Facility): CTDIvol = ( 8.88 ) mGy, DLP = ( 368.87 ) mGycm TECHNIQUE: Transaxial images were obtained from the dome of the diaphragm to the symphysis pubis without oral contrast. 100 ml of Isovue 300 contrast was administered. Sagittal and coronal images were reconstructed. Individualized dose optimization techniques were used for this CT. COMPARISON: January 17, 2010. FINDINGS: The visualized lung bases are unremarkable. The visualized portions of the heart are within normal limits. Normal liver. Normal gallbladder and extrahepatic biliary system. Normal spleen. Normal pancreas. Normal bilateral adrenal glands. Normal right kidney. Normal left kidney. Normal visualized stomach. Normal small intestine. Normal colon. The appendix is dilated measuring up to 11 mm in diameter. There is appendiceal wall thickening and free fluid within the pelvis. Normal abdominal aorta. Normal inferior vena cava. Normal retroperitoneum. Normal urinary bladder. Normal abdominal wall. Normal osseous structures. CT/Abdomen/Pelvis WITH Contrast IMPRESSION: Findings consistent with acute appendicitis. Electronically Signed: Leslie Denton MD at 21:41 EDT Tel , Service support , CC: Martin Duarte MD; Sandy Freeman MD Nurse Practitioner: Signed CNOP Observed: 10/11/2017 Status: COMPLETED Source: [place] 12:[address] [facility] REPOSITORY Operative Note (Enc) (GENSWS) Progress Notes: Jez Tavarez MD 10/23/2017 7:32 PM Signed OPERATIVE NOTATION FOR [facility] SURGICAL PROCEDURE. October 11, 2017 Dominick De La Cruz 1960 [id number] male PROCEDURE: laparoscopic appendectomy - [id number] SURGEON: Igor Tavarez M.D. FACS MACHINIST HELPER MARINE: None DEPT: WQ PROVIDER: [id number] Tavarez MD POS: [id number] DIAGNOSIS: (K35.3) Acute appendicitis with localized peritonitis (primary encounter diagnosis) ASA CLASS: 2E - mild emergency FINDINGS: COMPLICATIONS: None PMHx - PAST MEDICAL HISTORY Diagnosis Date - HTN (hypertension) COMORBIDITIES - HTN Post Op Occurrences - None Wound Classification - Clean Contaminated Operative note dictated in the [facility] dictation system. Jez Tavarez MD Encounter Status:Closed by JEZ TAVAREZ MD on 10/23/17 ALLERGIES ALLERGIES DATE TYPE / CODE NAME / CODE REACTION SEVERITY SOURCE 10/11/2017 Drug No Known Unknown [facility] Allergy/416 Allergies/F41316 [facility] 364580(SNOM 0388(RXNORM) Repository ED CT) Drug NO KNOWN [facility] Class/34068 ALLERGIES Main [place] 1003(SNOMED Repository CT) ENCOUNTERS ENCOUNTERS ADMIT/DISCHARGE ACCOUNT ADMITTING ENCOUNTER LOCATION SOURCE NUMBER CLASS 04/14/2018 [id number] Ambulatory [facility] ing:LABSPEC Repository 10/19/2017/10/22/19 [id number] Ambulatory [address] Repository 10/11/2017/10/13/19 [id number] [place], Ambulatory [address] ing:DY9Fqvz: Repository [id number]: 1 10/11/2017/10/13/19 [id number] Ambulatory BMSBuilding:W [address] Repository PAYERS PAYERS ENCOUNTER GUARANTOR PAYER SUBSCRIBER SOURCE 04/14/2018 DOMINICK Rich Primary DOMINICK Rich [place] [id number] KAT Insurance:ANTHEMPolic FISCUSDOB: [facility] catrachito OLIVEIRA y Number: [id number] Hospital [id number]: 330 [id number] Repository [phone] () Date:7307-03-61YC [id number] [place] [address] 116[address]TG: 04/14/2018 Secondary NOT GIVENUNK [place] Insurance:SELF PAY [facility] Number: Effective Repository Date:2018-04-14 10/11/2017 DOMINICK Rich Primary DOMINICK Rich [place] [id number] KAT Insurance:ANTHEMPolic FISCUSDOB: [facility] ENRIQUE nv y Number: [id number] Hospital 201[address]Gcp: (330 [id number] Repository [phone] () Date:[id number] [address], [place] [address]UG: 10/11/2017 Secondary NOT GIVENUNK [place] Insurance:SELF PAY [facility] Number: Effective Repository Date:2017-10-11 10/11/2017 DOMINICK Rich Primary DOMINICK Rich [place] [id number] KAT Insurance:ANTHEMPolic FISCUSDOB: [facility] TEE nv y Number: [id number] Hospital [id number]: (745) [id number] Repository [phone] () Date:0375-18-19AH [address], [place] [address]OD: 10/11/2017 Secondary NOT GIVENUNK [place] Insurance:SELF PAY [facility]: Effective Repository Date:2017-10-11
== END ==
PROVIDERS: Family Provider Family Medicine; PCP Family Medicine; Referring Provider Internal Medicine Gastroenterology; Visit Provider Internal Medicine Gastroenterology
DX: K51.90 Ulcerative colitis, unspecified, without complications (principal)
CPT/HCPCS: 88305

== ENCOUNTER → 2019-02-16 | Outpatient (CLI) | payer BC, SELFPAY ==
[2017-10-12 01:00] VITALS: BMI 23.1
[2019-02-16 10:35] LABS: Erythrocyte Sedimentation Rate 2 mm/hr (0-20)
[2019-02-16 11:02] LABS: ALB/GLOB Ratio 1.1 RATIO (0.9-2.4); AST(SGOT) 10 U/L (15-37); Alanine Aminotransfer ALT/SGPT 18 U/L (16-61); Albumin, Serum 4.2 g/dL (3.2-5.0); Alkaline Phosphatase 53 U/L (45-117); Anion Gap 6 (5-15); BUN 14 mg/dL (7-18); BUN/Creat Ratio 11.3 RATIO (10-20); Chloride 99 mmol/L (98-107); Cholesterol 272 mg/dL (200); Creatinine, Serum 1.24 mg/dL (0.70-1.30); EST Glomerular Filtration Rate 64 mL/min (>60); Est Glom Filt Rate - Afr Amer 77 mL/min (>60); Globulin 3.7 g/dL (2.2-4.2); Glucose 85 mg/dL (74-106); High Density Lipoprotein 126 mg/dL; PSA,Total - Annual Screen 0.36 ng/mL (0.00-4.00); Potassium 3.6 mmol/L (3.5-5.1); Protein, Total 7.9 g/dL (6.4-8.2); Sodium Level 134 mmol/L (136-145); Thyroid Stim Hormone (TSH) 1.75 uIU/mL (0.358-3.74); Triglycerides 64 mg/dL; Very Low Density Lipoprotein 13 mg/dL (5-40)
== END | disposition home or self-care (01) ==
LOC: MTLAB 08:42
PROVIDERS: Family Provider Family Medicine; PCP Family Medicine; Referring Provider Family Medicine; Visit Provider Family Medicine
DX: R63.4 Abnormal weight loss (principal); I10 Essential (primary) hypertension; Z12.5 Encounter for screening for malignant neoplasm of prostate
CPT/HCPCS: 36415; 80053; 80061; 84153; 84443; 85652; G0103

== ENCOUNTER → 2019-02-20 | Outpatient (CLI) | payer BC, SELFPAY ==
[2017-10-12 01:00] VITALS: BMI 23.1
--- NOTE | 2019-02-20 17:20 | RAD_ITS ---
STUDY: X-RAY - LEFT FOOT CLINICAL: Male, 58 years old. Pain and left foot laterally for about 3 weeks. No known injury. TECHNIQUE: 3 view(s) of the foot. COMPARISON: None. FINDINGS: Normal talus, calcaneus, and tarsal bones. Benign bone sclerosis distal tibia. Normal visualized subtalar, talonavicular, calcaneocuboid, tarsal and tarsometatarsal articulations. Normal metatarsi. Normal metatarsophalangeal joint of the great toe. Normal tibial and fibular sesamoid bones. Normal interphalangeal joint of the great toe. Normal phalanges of the great toe. Normal second through fifth metatarsophalangeal joints. Normal interphalangeal joints and phalanges of the lesser toes. The soft tissue structures are unremarkable. RAD/Foot min 3 Views IMPRESSION: Normal x-ray examination of the foot. Electronically Signed: Christel Corey MD at 5:06 EDT , Service support ,
== END | disposition home or self-care (01) ==
LOC: MTRAD 17:18
PROVIDERS: Family Provider Family Medicine; PCP Family Medicine; Referring Provider Family Medicine; Visit Provider Family Medicine
DX: M79.672 Pain in left foot (principal)
CPT/HCPCS: 73630

== ENCOUNTER → 2019-11-27 | Outpatient (CLI) | payer BC, SELFPAY ==
[2017-10-12 01:00] VITALS: BMI 23.1
--- NOTE | 2019-11-27 10:08 | RAD_ITS ---
STUDY: X-RAY - RIGHT CLAVICLE REASON FOR EXAM: Male, 59 years old. Fall last night, right side clavicle pain now TECHNIQUE: 2 view(s) of the clavicle. COMPARISON: None. FINDINGS: There is nondisplaced possibly slightly impacted fracture of the distal tip of the clavicle. Normal acromioclavicular articulation. Normal visualized sternoclavicular articulation. Normal visualized pulmonary apex. RAD/Clavicle IMPRESSION: Nondisplaced nonangulated fracture of the distal right clavicle. Electronically Signed: Albert Machado MD at 19:52 EDT , Service support ,
== END | disposition home or self-care (01) ==
LOC: MTRAD 10:07
PROVIDERS: PCP Family Medicine; Referring Provider Family Medicine; Visit Provider Family Medicine
DX: S42.009A Fracture of unspecified part of unspecified clavicle, initial encounter for closed fracture (principal)
CPT/HCPCS: 73000

== ENCOUNTER → 2019-12-12 09:02 | Outpatient (CLI) | payer BC, SELFPAY ==
[2017-10-12 01:00] VITALS: BMI 23.1
--- NOTE | 2019-12-12 09:06 | RAD_ITS ---
STUDY: X-RAY - RIGHT CLAVICLE REASON FOR EXAM: Male, 59 years old. F/U RIGHT CLAVICLE FX. TECHNIQUE: 2 view(s) of the clavicle. COMPARISON: None. FINDINGS: Stable appearance of the distal right clavicular fracture. Normal acromioclavicular articulation. Normal visualized sternoclavicular articulation. Normal visualized pulmonary apex. RAD/Clavicle IMPRESSION: Stable appearance of the right distal clavicular fracture. Electronically Signed: Derrick Quach, at 11:02 EDT , Service support ,
== END ==
PROVIDERS: PCP Family Medicine; Referring Provider Family Medicine; Visit Provider Family Medicine
DX: S42.001A Fracture of unspecified part of right clavicle, initial encounter for closed fracture (principal)
CPT/HCPCS: 73000

== ENCOUNTER → 2020-04-01 08:08 | Outpatient (CLI) | payer BC, SELFPAY ==
[2020-04-01 10:10] LABS: ALB/GLOB Ratio 1.3 RATIO (0.9-2.4); AST(SGOT) 19 U/L (15-37); Alanine Aminotransfer ALT/SGPT 20 U/L (16-61); Albumin, Serum 4.5 g/dL (3.2-5.0); Alkaline Phosphatase 58 U/L (45-117); Anion Gap 7 (5-15); BUN 15 mg/dL (7-18); BUN/Creat Ratio 12.1 RATIO (10-20); Calcium,Total 8.9 mg/dL (8.5-10.1); Chloride 102 mmol/L (98-107); Cholesterol 253 mg/dL (200); Creatinine, Serum 1.24 mg/dL (0.70-1.30); EST Glomerular Filtration Rate 63 mL/min (>60); Est Glom Filt Rate - Afr Amer 77 mL/min (>60); Globulin 3.5 g/dL (2.2-4.2); Glucose 110 mg/dL (74-106); High Density Lipoprotein 147 mg/dL; PSA,Total - Annual Screen 0.49 ng/mL (0.00-4.00); Potassium 4.5 mmol/L (3.5-5.1); Sodium Level 136 mmol/L (136-145); Triglycerides 38 mg/dL; Very Low Density Lipoprotein 8 mg/dL (5-40)
== END ==
PROVIDERS: PCP Family Medicine; Referring Provider Family Medicine; Visit Provider Family Medicine
DX: I10 Essential (primary) hypertension (principal); Z12.5 Encounter for screening for malignant neoplasm of prostate
CPT/HCPCS: 36415; 80053; 80061; 84153; G0103

== ENCOUNTER 2020-07-16 12:06 | Outpatient (RCR) | payer BC, SELFPAY ==
[2017-10-12 01:00] VITALS: BMI 23.1
[2020-07-16] MEDS: COVID-19 VACC, MRNA(PFIZER)/PF 30 MCG/0.3 ML SYRINGE IM (16:04)
[2020-08-06] MEDS: COVID-19 VACC, MRNA(PFIZER)/PF 30 MCG/0.3 ML SYRINGE IM (16:01)
== END 2020-07-16 23:59 ==
LOC: IMMUN 12:06
PROVIDERS: PCP Family Medicine; Visit Provider Family Medicine
DX: Z23 Encounter for immunization (principal)
CPT/HCPCS: 0001A; 0002A; 91300

== ENCOUNTER → 2022-02-26 | Outpatient (CLI) | payer BC, SELFPAY ==
[2022-02-26 12:03] LABS: Anion Gap 6 (5-15); BUN 12 mg/dL (7-18); BUN/Creat Ratio 10.9 RATIO (10-20); Calcium,Total 9.3 mg/dL (8.5-10.1); Chloride 103 mmol/L (98-107); Cholesterol 247 mg/dL (200); EST Glomerular Filtration Rate 72 mL/min (>60); Est Glom Filt Rate - Afr Amer 87 mL/min (>60); Glucose 96 mg/dL (74-106); High Density Lipoprotein 176 mg/dL; PSA,Total - Annual Screen 0.72 ng/mL (0.00-4.00); Potassium 3.8 mmol/L (3.5-5.1); Sodium Level 136 mmol/L (136-145); Triglycerides 42 mg/dL; Very Low Density Lipoprotein 8 mg/dL (5-40)
[2022-02-27 14:58] LABS: V-Zoster IgG (Immunity) 411 index (Immune >165)
== END | disposition home or self-care (01) ==
LOC: MFPLAB 09:24
PROVIDERS: PCP Family Medicine; Referring Provider Family Medicine; Visit Provider Family Medicine
DX: I10 Essential (primary) hypertension (principal); Z12.5 Encounter for screening for malignant neoplasm of prostate; Z23 Encounter for immunization
CPT/HCPCS: 36415; 80048; 80061; 84153; 86787; G0103

== ENCOUNTER → 2023-03-02 | Outpatient (CLI) | payer BC, SELFPAY ==
[2023-03-02 10:55] LABS: Anion Gap 5 (5-15); BUN 16 mg/dL (7-18); Calcium,Total 9.3 mg/dL (8.5-10.1); Chloride 100 mmol/L (98-107); Creatinine, Serum 1.23 mg/dL (0.70-1.30); EST Glomerular Filtration Rate 63 mL/min (>60); Est Glom Filt Rate - Afr Amer 77 mL/min (>60); Glucose 106 mg/dL (74-106); PSA,Total - Annual Screen 0.44 ng/mL (0.00-4.00); Sodium Level 132 mmol/L (136-145)
== END | disposition home or self-care (01) ==
LOC: MFPLAB 08:55
PROVIDERS: PCP Family Medicine; Visit Provider Family Medicine
DX: I10 Essential (primary) hypertension (principal); Z12.5 Encounter for screening for malignant neoplasm of prostate
CPT/HCPCS: 36415; 80048; 84153; G0103

== ENCOUNTER → 2023-05-25 | Outpatient (CLI) | payer BC, SELFPAY ==
--- OUTSIDE RECORDS SUMMARY | 2023-05-25 16:31 | XMS RPT_ITS | CCD ---
Author Name Unknown Address [address] [place] [address] Organization [facility] Care Team Providers Care [place] Burner Operator Name Role Phone AIME LEONARD (CHEY) Unavailable Unavailable EVELINA TAVAREZ Unavailable Unavailable Results Test Name Value Interpretation Reference Range Facil ity Encounters Encounter Date Encounter Type Care Provider Facility Start: 10-19-2017 End: 10-21-2017 Ambulatory AIME SANTIZO) [facility] Summary Purpose Family History No Family History Records Found Advance Directives No Advanced Directives Records Found Additional Source Comments (unrecognized sect ion and content) No Status Records Found INFORMATION SOURCE (unrecogn ized section and content) FOR RECORDS PERTAINING TO PATIENTS WHO ARE OR HAVE BEEN ENROLLED IN A CHEMICAL DEPENDENCY/SUBSTANCEABUSE PROGRAM, SOME INFORMATION MAY BE OMITTED. This clinical summary was aggregated from multiple sources. Caution should be exercised in using it in the provision of clinical care. This summary normalizes information from multiple sources, and as a consequence, information in this document may materially change the coding, format and clinical context of patient data. In addition, data may be omitted in some cases. CLINICAL DECISIONS SHOULD BE BASED ON THE PRIMARY CLINICAL RECORDS. [employer] provides no warranty or guarantee of the accuracy or completeness of information in this document.
[2023-05-25 18:04] LABS: Hematocrit 35.7 % (40-54); Mean Corp Hgb Conc 33.6 g/dL (32-36); Mean Corpuscular Hgb 31.8 pg (27.0-32.0); Mean Corpuscular Volume 94.7 fL (80-94); Mean Platelet Vol. 8.9 fl (6.2-12.0); Platelet Count 278 K/mm3 (150-450); RBC Distribution Width CV 12.1 % (11.6-14.6); RBC Distribution Width SD 42.1 fl (35.1-43.9); Red Blood Count 3.77 M/mm3 (4.6-6.2); White Blood Count 5.9 K/mm3 (4.4-11.0)
[2023-05-25 18:21] LABS: Anion Gap 8 (5-15); BUN 25 mg/dL (7-18); BUN/Creat Ratio 17.2 RATIO (10-20); CRP < 2.90 mg/L (0.0-3.0); Calcium,Total 8.9 mg/dL (8.5-10.1); Chloride 97 mmol/L (98-107); Creatinine, Serum 1.45 mg/dL (0.70-1.30); EST Glomerular Filtration Rate 52 mL/min (>60); Est Glom Filt Rate - Afr Amer 63 mL/min (>60); Glucose 108 mg/dL (74-106); Potassium 4.3 mmol/L (3.5-5.1); Sodium Level 130 mmol/L (136-145)
[2023-05-25 18:29] LABS: Erythrocyte Sedimentation Rate < 1 mm/hr (0-20)
== END | disposition home or self-care (01) ==
LOC: MTLAB 16:24
PROVIDERS: PCP Family Medicine; Referring Provider Family Medicine; Visit Provider Family Medicine
DX: K51.90 Ulcerative colitis, unspecified, without complications (principal)
CPT/HCPCS: 36415; 80048; 85027; 85652; 86140

== ENCOUNTER → 2023-10-07 | Outpatient (CLI) | payer BC, SELFPAY ==
--- NOTE | 2023-10-07 15:10 | RAD_ITS ---
INDICATION: PAIN EXAMINATION/TECHNIQUE: X-RAY - XR Hip Unilateral with Pelvis when performed; 2-3 Views COMPARISON: FINDINGS: PELVIC BONES: No displaced fracture, destructive or sclerotic lesions. Note that overlapping bowel shadows may however obscure fine detail. Sacroiliac joints are unremarkable. No widening of the pubic symphysis. HIPS: The articular structures are unremarkable. No displaced fracture seen in this frontal view. SOFT TISSUES: No soft tissue swelling or gas. RAD/HIP, UNI W/ Pelvis 2-3 Views IMPRESSION: No evidence of displaced pelvic or hip fracture. Electronically Signed: Mj Moulton DO at 18:09 EDT Reading Location ID and State: [facility] / [place] Tel [phone], Service support ,
[2023-10-07 18:10] LABS: Absolute Lymphocyte Count 1.73 X10^3/uL (0.83-4.51); Absolute Neutrophil Count 2.3 X10^3/uL (2.0-7.7); Basophil# 0.04 X10^3/uL; Basophil% 0.8 % (0-1); Eosinophil# 0.04 X10^3/uL; Eosinophils% 0.8 % (0-5); Hematocrit 34.6 % (40-54); Hemoglobin 12.1 g/dL (13.0-16.5); Lymphocyte # 1.73 X10^3/ul (0.83-4.51); Lymphocyte % 36.1 % (19-41); Mean Corpuscular Hgb 32.7 pg (27.0-32.0); Mean Corpuscular Volume 93.5 fL (80-94); Mean Platelet Vol. 9.2 fl (6.2-12.0); Monocyte# 0.71 X10^3/uL; Monocyte% 14.8 % (0-10); NRBC Flagged by Analyzer 0 % (0-5); Neutrophil # 2.25 X10^3/uL (2.7-7.7); Neutrophil % 47.1 % (47-70); POSITIVE MORPHOLOGY YES; Platelet Count 344 K/mm3 (150-450); RBC Distribution Width CV 11.9 % (11.6-14.6); RBC Distribution Width SD 40.9 fl (35.1-43.9); White Blood Count 4.8 K/mm3 (4.4-11.0)
[2023-10-07 18:17] LABS: Differential Indicated SCAN CRITERIA MET
[2023-10-07 18:51] LABS: Erythrocyte Sedimentation Rate 2 mm/hr (0-20)
[2023-10-07 18:52] LABS: Differential Comment SCANNED; Reactive Lymphocyte 1+
[2023-10-07 19:27] LABS: Hepatitis B Surface Antibody Non-Reactive; Hepatitis B Surface Antigen Non-Reactive (Nonreactive); Hepatitis C Antibody Non-Reactive (Nonreactive)
[2023-10-11 12:08] LABS: ANTINUCLEAR ANTIBODIES DIRECT Negative (Negative)
[2023-10-12 21:56] LABS: ALB/GLOB Ratio 1.2 RATIO (0.9-2.4); AST(SGOT) 77 U/L (15-37); Alanine Aminotransfer ALT/SGPT 91 U/L (16-61); Albumin, Serum 4.3 g/dL (3.2-5.0); Alkaline Phosphatase 49 U/L (45-117); Anion Gap 11 (5-15); BUN 14 mg/dL (7-18); BUN/Creat Ratio 10.1 RATIO (10-20); CRP < 2.90 mg/L (0.0-3.0); Calcium,Total 9.3 mg/dL (8.5-10.1); Chloride 97 mmol/L (98-107); Creatinine, Serum 1.39 mg/dL (0.70-1.30); EST Glomerular Filtration Rate 55 mL/min (>60); Est Glom Filt Rate - Afr Amer 66 mL/min (>60); Globulin 3.6 g/dL (2.2-4.2); Glucose 78 mg/dL (74-106); Potassium 3.7 mmol/L (3.5-5.1); Protein, Total 7.9 g/dL (6.4-8.2); Rheumatoid Factor < 10.0 IU/mL (<15); Sodium Level 131 mmol/L (136-145)
== END | disposition home or self-care (01) ==
LOC: MTLAB 14:58
PROVIDERS: PCP Family Medicine; Referring Provider Internal Medicine Rheumatology; Visit Provider Internal Medicine Rheumatology
DX: M06.4 Inflammatory polyarthropathy (principal); K51.90 Ulcerative colitis, unspecified, without complications; I10 Essential (primary) hypertension
CPT/HCPCS: 36415; 73502; 80053; 81374; 85025; 85652; 86038; 86140; 86200; 86431; 86706; 86803; 87340

== ENCOUNTER → 2024-06-29 | Outpatient (CLI) | payer BC, SELFPAY ==
--- NOTE | 2024-06-29 11:16 | RAD_ITS ---
PROCEDURE: CHEST PA AND LATERAL REASON FOR EXAM: Chest pain TECHNIQUE: Frontal and lateral views of the chest. COMPARISON: None. FINDINGS: The lungs are clear. Pulmonary vascularity appears within limits. No pneumothorax or pleural effusion identified. The cardiac and mediastinal contours are within limits. 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 RAD/Chest PA and Lateral IMPRESSION: No evidence of acute disease. Reading Location: [id number]
[2024-06-29 15:00] LABS: Hematocrit 34.5 % (40-54); Hemoglobin 11.4 g/dL (13.0-16.5); Mean Corpuscular Hgb 31.4 pg (27.0-32.0); Mean Platelet Vol. 8.8 fl (6.2-12.0); Platelet Count 231 K/mm3 (150-450); RBC Distribution Width CV 11.8 % (11.6-14.6); RBC Distribution Width SD 41.2 fl (35.1-43.9); Red Blood Count 3.63 M/mm3 (4.6-6.2); White Blood Count 4.9 K/mm3 (4.4-11.0)
[2024-06-29 15:25] LABS: Osmolality, Serum 273 mOsm/KG (280-301)
[2024-06-29 15:58] LABS: ALB/GLOB Ratio 1.6 RATIO (0.9-2.4); AST(SGOT) 19 U/L (<=37); Alanine Aminotransfer ALT/SGPT 12 U/L (<=46); Alkaline Phosphatase 42 U/L (40-129); Anion Gap 16 (5-15); BUN 22 mg/dL (4-19); BUN/Creat Ratio 18.3 RATIO (10-20); Carbon Dioxide 22.3 mmol/L (22.0-29.0); Chloride 91 mmol/L (96-108); Creatinine, Serum 1.2 mg/dL (0.8-1.3); EST Glomerular Filtration Rate 67 (>60); Globulin 3.1 g/dL (2.2-4.2); Glucose 112 mg/dL (70-99); Potassium 4.6 mmol/L (3.3-5.1); Sodium Level 128 mmol/L (133-145); Thyroid Stim Hormone (TSH) 0.877 uIU/mL (0.300-4.200)
[2024-06-29 19:01] LABS: Troponin T High Sensitivity 12 ng/L (<=22)
== END | disposition home or self-care (01) ==
LOC: MTRAD 11:15
PROVIDERS: PCP Family Medicine; Referring Provider Family Medicine; Visit Provider Family Medicine
DX: E87.1 Hypo-osmolality and hyponatremia (principal); R07.9 Chest pain, unspecified
CPT/HCPCS: 36415; 71046; 80053; 83930; 84443; 84484; 85027